=== PATIENT | female | born 1985 | race Caucasian/White ===

== ENCOUNTER 2020-02-17 16:17 | Inpatient (IN) | payer OTHER ==
[~2020-02-17] VITALS: Ht 158.8 cm; Wt 103.0 kg
[2020-02-17] MEDS ORDERED: LACTATED RINGERS 1,000 ML IV SCH (16:19)
[2020-02-17] MEDS ORDERED: PLEASE ENTER ALLERGIES MC SCH (16:30)
[2020-02-17] MEDS ORDERED: ALBUTEROL SULFATE 2.5 MG/3 ML NPPB PRN (16:30)
[2020-02-17] MEDS ORDERED: PROMETHAZINE 25 MG/ML, 1ML IV PRN (16:30)
[2020-02-17] MEDS ORDERED: hydrALAzine 20 MG/ML, 1ML IV PRN (16:30)
[2020-02-17] MEDS ORDERED: LABETALOL 5MG/ML, 20ML IV PRN (16:30)
[2020-02-17] MEDS ORDERED: CEFAZOLIN PMX 1GM/50ML IVPB ONE (16:30)
[2020-02-17] MEDS ORDERED: ACETAMINOPHEN 325 MG TABLET PO PRN (16:30)
[2020-02-17] MEDS ORDERED: ONDANSETRON 2MG/ML, 2ML ONE (16:42)
[2020-02-17] MEDS ORDERED: KETOROLAC 30 MG/1 ML ONE (16:42)
[2020-02-17] MEDS ORDERED: FENTANYL PF 100 MCG/2ML ONE (16:42)
[2020-02-17] MEDS ORDERED: OXYTOCIN 10 UNITS/ML, 1ML ONE (16:42)
[2020-02-17] MEDS ORDERED: DEXAMETHASONE 4 MG/ML, 1ML ONE (16:42)
[2020-02-17] MEDS ORDERED: PHENYLEPHRINE 10 MG/ML ONE (16:42)
[2020-02-17] MEDS ORDERED: EPHEDRINE 50 MG/ML, 1ML ONE (16:42)
[2020-02-17] MEDS ORDERED: CEFAZOLIN 1,000 MG ONE (16:42)
[2020-02-17] MEDS ORDERED: METOCLOPRAMIDE 5 MG/ML, 2ML ONE (16:57)
[2020-02-17 17:00] VITALS: BP 108/59
[2020-02-17] MEDS ORDERED: CEFAZOLIN PMX 1GM/50ML 50 ML IV ONE (17:00)
[2020-02-17] MEDS ORDERED: METOCLOPRAMIDE 5 MG/ML, 2ML IVPush ONE (17:30)
[2020-02-17 17:33] LABS: BASOPHILS # (AUTO) 0.01 x10^3/uL (0-0.1); BASOPHILS % (AUTO) 0 % (0-1); EOSINOPHILS # (AUTO) 0.06 x10^3/uL (0-0.4); EOSINOPHILS % (AUTO) 1 % (1-7); LYMPHOCYTES # (AUTO) 1.46 x10^3/uL (1-3.4); LYMPHOCYTES % (AUTO) 11 % (22-44); MD NO; MEAN CORPUSCULAR HEMOGLOBIN 31.1 pg (27.0-34.8); MEAN CORPUSCULAR HGB CONC 33.6 g/dL (32.4-35.8); MEAN CORPUSCULAR VOLUME 92.8 fL (80-100); MEAN PLATELET VOLUME 7.1 fL (7.4-10.4); MONOCYTES # (AUTO) 0.21 x10^3/uL (0.2-0.8); MONOCYTES % (AUTO) 2 % (2-9); NEUTROPHILS # (AUTO) 11.17 x10^3/uL (1.8-6.8); NEUTROPHILS % (AUTO) 87 % (42-75); PLATELET COUNT 455 x10^3/uL (130-400); RED CELL DISTRIBUTION WIDTH 13.6 % (9.6-15.2)
[2020-02-17] MEDS ORDERED: CALCIUM CARBONATE 500 MG TAB.CHEW ONE (18:26)
[2020-02-17] MEDS ORDERED: INDOMETHACIN 50 MG CAPSULE ONE (18:26)
[2020-02-17] MEDS ORDERED: INDOMETHACIN 50 MG CAPSULE PO ONE (19:00)
[2020-02-17] MEDS ORDERED: CALCIUM CARBONATE 500 MG TAB.CHEW PO ONE (19:00)
== END 2020-02-17 21:05 | disposition home or self-care (01) | DRG 819 ==
LOC: LDIP 16:17 → UNDOADMOB 16:17 → INTOOBSV 16:19 → OBSVTOIN 16:19 → LDIP 16:20
PROVIDERS: ADMIT Obstetrics & Gynecology Maternal & Fetal Medicine; ATTEND Obstetrics & Gynecology Maternal & Fetal Medicine
PROC: 0UVC7ZZ Restriction of Cervix, Via Natural or Artificial Opening (ICD-10-PCS; principal; 2020-02-17)
DX: O26.872 Cervical shortening, second trimester (principal); O30.042 Twin pregnancy, dichorionic/diamniotic, second trimester; Z3A.19 19 weeks gestation of pregnancy
CPT/HCPCS: 36415; 85025; 96374; G0378; J0690; J1100; J1885; J2405; J3010; J2370; J2590; J2765; J7120